=== PATIENT | female | born 1980 | race Caucasian/White ===

== ENCOUNTER 2017-05-10 00:48 | Inpatient (IN) ==
[2017-05-10] MEDS ORDERED: Ibuprofen 400 MG TABLET PO PRN (01:46)
[2017-05-10] MEDS ORDERED: *HR* LORazepam 1 MG TABLET PO PRN (01:46)
[2017-05-10] MEDS ORDERED: Mag Hydrox/Al Hydrox/Simeth 30 ML UDC PO PRN (01:46)
[2017-05-10] MEDS ORDERED: MOM Conc 10 ML UD.LIQ PO PRN (01:46)
[2017-05-10] MEDS ORDERED: Haloperidol Lactate 5 MG/ML VIAL IM PRN (01:46)
[2017-05-10] MEDS ORDERED: hydrOXYzine pamoate 25 MG CAPSULE PO PRN (01:46)
[2017-05-10] MEDS ORDERED: traZODone 50 MG TABLET PO PRN (01:46)
[2017-05-10] MEDS ORDERED: *HR* LORazepam 2 MG/ML VIAL IM PRN (01:46)
[2017-05-10] MEDS: Nicotine 21 MG PATCH.TD24 TD SCH (08:31)
--- NOTE | 2017-05-10 11:02 | Psychiatry History & Physical ---
Date of Encounter: 05/10/17 Time of Encounter: 10:30 History of Present Illness Patient Stated Chief Complaint: Suicide attempt Medicare Admission Attestation: For traditional Medicare patients the provided hospital inpatient services are reasonable and necessary and in the case of services not specified as inpatient -only under 42 CFR 419.22 (n), that they are appropriately provided as inpatient services in accordance 42 CFR 412.3. For Critical Access Hospital the patient may reasonably be expected to be discharged or transferred to a hospital within 96 hours after admission to the Critical Access Hospital. Admitted From: Hospital to Hospital Transfer ([facility]) History of Present Illness: Ms. Campos is a 36 year old female transferred from [facility] ED for evaluation treatment off suicide attempts by cutting her wrist and needed sutures. 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 Patient felt helpless and hopeless. Patient denied any past suicide attempts or any psychiatric treatment. She was given in the past antidepressant and Klonopin for the last couple of years on and off. She has never been hospitalized. Patient denies any abuse of alcohol or drugs. Past Med Surg Social Fam HX - Past Medical History Medical history: asthma - Past Psychiatric History Psychiatric history: Reports: no psych history - Past Surgical History Surgical History: - Social History Smoking Status: Current every day smoker Smokeless Tobacco Status: No Alcohol use: occasionally Drug use: none - Family History Father Name: Sharon Graham Family Member Ethnicity: Non- Living Status: Still Living Hx Family Cardiac Disorders: Yes (Hypertension) Medications & Allergies Albuterol Neb [Proventil Neb] 2.5 mg IH Q6H PRN 05/10/17 [History] Albuterol Sulfate [Proair Hfa] 2 puff IH Q6H PRN 05/10/17 [History] Escitalopram [Lexapro] 20 mg PO DAILY 05/10/17 [History] Fluticasone Propionate [Flovent Hfa] 1 puff IH DAILY 05/10/17 [History] Levonorgestrel [Liletta] 1 each IY AD 05/10/17 [History] clonazePAM [Klonopin] 0.5 mg PO BID PRN 05/10/17 [History] Allergies No Known Allergies Allergy (Verified 05/10/17 01:45) Review of Systems Psychiatric: Reports: depression, anxiety, suicidal ideation, hopelessness Mental Status Exam Patient orientation: Yes Person, Yes Time, Yes Place Level of alertness: Alert Patient appearance: Appropriate, Well Groomed, Average Behavior: calm, cooperative, anxious, tearful, guarded Psychomotor activity: Normal Eye contact: Minimal Contact Mood description: Depressed Affect description: congruent with mood, constricted, anxious Speech pattern: Normal rate, Normal rhythm, Normal tone Speech volume: Normal Thought process: Linear, Goal Oriented Thought content: Yes Suicidal ideation, No Homicidal ideation, No Overt delusions Perceptual disturbances: No Auditory hallucinations, No Visual hallucinations Attention span: Capable of Focused Attention Memory description: Grossly Intact Patient reliability: Reliable Historian Intelligence estimate: Average Judgment: Limited Insight: Partial Results - Vital Signs Vital signs: Temp Pulse Resp BP 97.8 F 96 17 113/79 05/10/17 09:00 05/10/17 09:00 05/10/17 09:00 05/10/17 09:00 Assessment and Plan (1) Major depressive disorder, recurrent, unspecified Current visit: Yes Status: Acute Plan: Admit inpatient for safety and stabilization, Close observation, Suicide Precautions per unit protocol, Encourage participation in unit milieu, Group Therapy, Monitor sleep, Monitor appetite Additional Plan: Patient will continue her medication and will be monitored. Risks, benefits, side effects, alternatives discussed w/pt: Yes Patient agreeable to treatment: Yes Estimated Length of Stay (Days): 3 Qualifiers: Active/Remission status: currently active Major depression episode severity : severe Psychotic features: without psychotic features Qualified Code(s): F33.2 - Major depressive disorder, recurrent severe without psychotic features
[2017-05-10] MEDS ORDERED: clonazePAM 0.5 MG TABLET PO PRN (11:11)
[2017-05-10] MEDS: (Fluticasone Propionate [Flovent Hfa] 1 PUFF) IH SCH (11:56)
[2017-05-10] MEDS ORDERED: Albuterol 2.5 MG/3 ML NEBULIZER IH PRN (16:00)
[2017-05-11 08:30] VITALS: BP 115/79
[2017-05-11] MEDS: Nicotine 21 MG PATCH.TD24 TD SCH (08:30)
[2017-05-11] MEDS: (Fluticasone Propionate [Flovent Hfa] 1 PUFF) IH SCH (08:35)
--- NOTE | 2017-05-11 13:15 | Discharge Summary ---
Date of Encounter: 05/11/17 Time of Encounter: 13:12 Diagnosis - Discharge Diagnosis (1) Major depressive disorder, recurrent, unspecified Status: Acute Qualifiers: Active/Remission status: currently active Major depression episode severity : severe Psychotic features: without psychotic features Qualified Code(s): F33.2 - Major depressive disorder, recurrent severe without psychotic features Medications - Discharge Medications Albuterol Neb [Proventil Neb] 2.5 mg IH Q6H PRN 05/10/17 [History] Albuterol Sulfate [Proair Hfa] 2 puff IH Q6H PRN 05/10/17 [History] Escitalopram [Lexapro] 20 mg PO DAILY 05/10/17 [History] Fluticasone Propionate [Flovent Hfa] 1 puff IH DAILY 05/10/17 [History] Levonorgestrel [Liletta] 1 each IY AD 05/10/17 [History] clonazePAM [Klonopin] 0.5 mg PO BID PRN 05/10/17 [History] Allergies No Known Allergies Allergy (Verified 05/10/17 01:45) Provider Date of admission: 05/10/17 00:48 Primary care physician: PCP NO Discharging clinician: Leo Hansen Assessment and Plan - Patient/Caregiver Discharge Instructions Activity: resume usual activities as tolerated Diet: regular diet - Follow up Plan Follow up with: [facility] [Outside] - 05/18/17 2:00 pm (The above appointment is with LETI Pelaez, for a health assessment. You will also see Dr. Omer, psychiatrist, on 05/24/17 at 10:45am. You will also see Fernie Boo for counseling on 05/26/17 at 12:00pm. Please bring your insurance card and social security card to your first appointment. This is the first available appointment. You may contact the office regularly to check for cancellations that may allow you to be seen sooner, and you may walk in during business hour to be seen on crisis.) Functional capacity at discharge: independent ambulation Overall status at discharge: Stable Disposition: Home, Self-Care Hospital Course Hospital course: Ms. Campos is a 36 year old female admitted after having suicide attempt by cutting her wrist. 4 degenerative admission please see H&P On the units patient was started on her medication, she was encouraged to attend activities and groups, she was medication compliant. She reported improved sleep and denies suicidal ideation. Discharge and follow-up planning was discussed and completed by the social work supervisor. On discharge patient was medically stable, nonsuicidal and future oriented. - Time Spent with Patient Total time spent providing and/or coordinating discharge services: Greater than 30 minutes Quality - Multiple Antipsychotics Patient discharged on 2 or more antipsychotic medications: No Procedures - Procedures Procedures: Medication Management, Crisis Stabilization, Supportive Therapy, Group Therapy, Psychoeducational Therapy Mental Status Exam - Mental Status Exam Patient orientation: Yes Person, Yes Time, Yes Place Level of alertness: Alert Patient appearance: Appropriate, Well Groomed Behavior: calm, cooperative Psychomotor activity: Normal Eye contact: Maintains Eye Contact Mood description: Euthymic/stable Affect description: congruent with mood, full range Speech pattern: Normal rate, Normal rhythm, Normal tone Speech Volume: Normal Thought process: Linear, Goal Oriented Thought Content: No Suicidal ideation, No Homicidal ideation, No Overt delusions Perceptual Disturbances: No Auditory hallucinations, No Visual hallucinations Judgment: Limited Insight: Partial
[2017-05-11] MEDS ORDERED: Beclomethasone 80mcg MDI IH SCH (22:00)
== END 2017-05-11 15:30 | disposition home or self-care (01) | DRG 751 ==
LOC: 1ANU 00:48
PROVIDERS: ADMIT Psychiatry & Neurology Psychiatry; ATTEND Psychiatry & Neurology Psychiatry